=== PATIENT | female | born 1970 | race Hispanic/Latino ===

== ENCOUNTER → 2018-04-22 | Day surgery (SDC) | payer OTHER ==
[~2018-04-22] MED LIST: BUPIVACAINE HCL 0.5% INJ 30 ML VIAL INJ ONE; CLINDAMYCIN PHOS 900MG/ 50ML 50 ML IV ONE; DEXAMETHASONE SOD PHOS INJ 4 MG/ML VIAL ONE; FENTANYL CITRATE/PF 100MCG/2 ML INJ ONE; GLUCOSAMINE PO; IMMUNE SYSTEM PO; KETOROLAC TROMETHAMINE 30 MG/ML VIAL ONE; LIDOCAINE HCL 2% LOCAL INJ 5 ML SDV VIAL INJ ONE; MELOXICAM7.5 MG PO; MIDAZOLAM HCL 2 MG/2 ML VIAL ONE; ONDANSETRON HCL INJ 2 MG/ML VIAL ONE; PROPOFOL IV EMULSION 10 MG/ML 20 ML VIAL ONE; ROBAXIN500 MG PO; SEVOFLURANE INHAL SOLN 250 ML PEN BTL ONE; VITAMIN B-12 PO; VITAMIN C PO; VITAMIN D PO
--- OUTSIDE RECORDS SUMMARY | 2018-04-22 05:19 | XMS REPORT | Clinical Summary ---
Author Author [facility] Organization [facility] Address Unknown Phone Unavailable Care Team Providers Care Cotton Stripper Name Role Phone Saud Momin MD PCP Allergies Not on File Medications Not on file Active Problems Not on file Encounters Care Team Description Date Type Specialty Crys Spann MD Cyst of ovary, unspecified laterality (Primary Dx) 11/23/2017 Transcribe Access Orders after 04/21/2017 Social History Date Tobacco Use Types Packs/Day Years Used Never Assessed Sex Assigned at Date Recorded Not on file Industry Job Start Date Occupation Not on file Not on file Not on file Travel End Travel History Travel Start No recent travel history available. Last Filed Vital Signs Not on file Plan of Treatment Health Maintenance Due Date Last Done Comments CERVICAL CANCER SCREENING 1991 INFLUENZA VACCINE 12/12/2017 HEPATITIS B VACCINES Aged Out No longer eligible based on patient's age to complete this topic IPV VACCINES Aged Out No longer eligible based on patient's age to complete this topic MENINGOCOCCAL VACCINE Aged Out No longer eligible based on patient's age to complete this topic Results Not on fileafter 04/21/2017 Insurance Payer Benefit Subscriber ID Type Phone Address Plan / Group CIGNA CIGNA OPEN xxxxxxxxx HMO ACCESS/NET WORK Advance Directives Patient has advance care planning documents on file. For more information, leandro cyr contact: Ilya Faye [address] [place] [address]
[2018-04-22 09:30] VITALS: BP 136/84
--- NOTE | 2018-04-22 10:13 | Operative Report ---
DATE OF PROCEDURE: April 22, 2018 PREOPERATIVE DIAGNOSES: 1. Left hallux valgus. 2. Left hammertoe, second digit. POSTOPERATIVE DIAGNOSES: 1. Left hallux valgus. 2. Left hammertoe, second digit. PLANNED PROCEDURES: 1. Left Lapidus bunionectomy with first metatarsocuneiform arthrodesis. 2. Left second digit hammertoe arthrodesis. SURGEON: Dr. Kenneth DPM ORACLE DATABASE ADMINISTRATOR: Trevor Hernández DPM ANESTHESIA: General with a postoperative block consisting of 20 mL of 0.5% Marcaine plain. HEMOSTASIS: Pneumatic thigh tourniquet set at 350 mmHg for a total time of approximately 70 minutes. MATERIALS: One [employer] 0 mm BOW plate. One 4.0 cannulated x 44 mm cortical bone screw. Four plate-screws combination, locking, non-locking, measuring between 16 and 18 mm. 2-0 Vicryl, 3-0 Vicryl, 4-0 Prolene. One 0.045 K-wire. ESTIMATED BLOOD LOSS: Less than 10 mL. PATHOLOGY: None. PROCEDURE NOTE: The patient was seen in the preoperative waiting room where the correct procedure and site were identified. The patient was brought to the operating room and placed on the operating table in the supine position. General anesthesia was initiated. At this time, a well-padded pneumatic tourniquet was placed about the patient's left thigh. The left foot, ankle, and leg were then scrubbed, prepped, and draped in the usual aseptic manner. The left foot, ankle, and leg were exsanguinated with an Esmarch bandage, and the pneumatic thigh tourniquet was inflated to 350 mmHg for a total time of approximately 70 minutes. Attention was directed to the dorsomedial aspect of the patient's left first metatarsophalangeal joint where a large dorsomedial prominence is noted with the hallux deviated laterally and severe hypermobility at the first metatarsocuneiform joint. A large lazy S-incision was made over the first metatarsophalangeal joint extending to the first metatarsocuneiform joint. The dissection was carried through subcutaneous tissues, them from deeper underlying structures. All vital neurovascular structures were identified, retracted medially and laterally, and all bleeders were cauterized or ligated as deemed necessary. Attention was directed to the first metatarsocuneiform joint where the first metatarsocuneiform joint was identified and the periosteal tissues were elevated to allow for good visualization of the joint. Utilizing an osteotome, the plantar ligaments were resected to allow for rotation of the first metatarsal. Utilizing a sagittal saw, the cartilage on the base of the first metatarsal was denuded as well as a wedge osteotomy in the distal aspect of the medial cuneiform with the apex medial and the wedge lateral. The wafers were then removed and the joint was prepped for arthrodesis by curettage and subchondral drilling. Next, attention was directed to the first metatarsal head where through the same incision a full lateral release was performed consisting of the deep transverse metatarsal ligament, lateral collateral ligament, as well as the fibular sesamoid ligament. The hallux was then put through range of motion and found to be functioning in more proper anatomic alignment. Next, an inverted-L capsulotomy was performed at the level of first metatarsophalangeal joint. The head of the proximal phalanx was freed of all capsular and ligamentous attachments. Next, using techniques of manipulation and distraction, the first metatarsocuneiform joint was reduced and temporarily fixated utilizing intraoperative fluoroscopy. It was noted that the IM angle had been reduced, the tibial sesamoid position has been reduced as well as hallux valgus ankle. Next, utilizing a guidewire, a 4.0 cannulated screw was placed across the joint to allow for compression. Next, per newcomer hostess protocol, a 0 mm BOW plate was placed across the joint and 2 locking screws were placed proximally and 2 non-locking screws were placed distally measuring between 16 and 18 mm. Next, attention was directed to the first metatarsal head where utilizing a sagittal saw, the medial eminence was resected and passed off to the back table. The bone was then smoothed to anatomic alignment. The wound was then flushed with copious amounts of sterile saline. Capsule and deep tissue reapproximated with 2-0 Vicryl, subcutaneous tissue with 3-0 Vicryl, and the skin was closed using a running interlocking stitch with 4-0 Prolene. Attention was directed to dorsal aspect of the left second digit where a 3-cm linear incision was made directly over the proximal interphalangeal joint. The incision was then carried through the subcutaneous tissues, them from deeper underlying structures. All vital neurovascular structures were identified and retracted medially and laterally, and all bleeders were cauterized or ligated as deemed necessary. Next, a tenotomy and capsulotomy was performed at the level of second proximal interphalangeal joint, and the head of the proximal phalanx was freed of all capsular and ligamentous attachments. Utilizing a sagittal saw, the head of the proximal phalanx was resected and passed off to the back table. The base of the middle phalanx was also denuded of all articular cartilage. In a retrograde fashion, a 0.045 K-wire was drilled through the middle and distal phalanx, back through the proximal phalanx, and into the metatarsal head, and this was confirmed via intraoperative fluoroscopy. The K-wire was then bent and cut appropriately. The wound was then flushed with copious amounts of sterile saline. Tendon and deep tissue were reapproximated with 3-0 Vicryl and skin was closed using simple interrupted sutures with 4-0 Prolene. The incision site was then dressed with Adaptic, 4 x 4's, Kerlix, Webril, 4 x 30 posterior splint, and 4-inch Nikhil wrap. The patient tolerated the procedure and anesthesia well. The patient was transferred to the postoperative recovery unit with vital signs stable and vascular status intact. The patient was monitored there for a short period of time before being sent home with the following written and oral instructions: 1. Keep the dressing clean, dry, and intact. 2. The patient is to remain 100% nonweightbearing to the left lower extremity and to avoid any ambulation until being seen in the office. 3. The patient was given the office number and instructed to contact us if any problems should arise. Dictated by: Trevor Hernández DPM Job#: [id number]
== END | disposition home or self-care (01) ==
LOC: OR 05:15
PROVIDERS: ATTEND Podiatrist Foot & Ankle Surgery
DX: M20.12 Hallux valgus (acquired), left foot (principal); M20.42 Other hammer toe(s) (acquired), left foot; Z88.5 Allergy status to narcotic agent; Z88.0 Allergy status to penicillin; K21.9 Gastro-esophageal reflux disease without esophagitis
CPT/HCPCS: 28285; 28297; C1713 ×2; J1100; J1885; J2001; J2250; J2405; J2704

== ENCOUNTER 2023-08-13 13:40 | Outpatient (RCR) | payer OTHER ==
[~2023-08-13 13:40] MED LIST changes: -BUPIVACAINE HCL 0.5% INJ 30 ML VIAL INJ ONE; -CLINDAMYCIN PHOS 900MG/ 50ML 50 ML IV ONE; -DEXAMETHASONE SOD PHOS INJ 4 MG/ML VIAL ONE; -FENTANYL CITRATE/PF 100MCG/2 ML INJ ONE; -KETOROLAC TROMETHAMINE 30 MG/ML VIAL ONE; -LIDOCAINE HCL 2% LOCAL INJ 5 ML SDV VIAL INJ ONE; -MIDAZOLAM HCL 2 MG/2 ML VIAL ONE; -ONDANSETRON HCL INJ 2 MG/ML VIAL ONE; -PROPOFOL IV EMULSION 10 MG/ML 20 ML VIAL ONE; -SEVOFLURANE INHAL SOLN 250 ML PEN BTL ONE
== END 2023-09-11 ==
LOC: PT 13:40
PROVIDERS: ATTEND Anesthesiology
DX: M54.12 Radiculopathy, cervical region (principal)